=== PATIENT | female | born 2000 | race Two or more races ===

== ENCOUNTER 2024-07-30 21:22 | Emergency (ER) | payer SELFPAY ==
[~2024-07-30] VITALS: Ht 172.7 cm; Wt 57.7 kg
[2024-07-30] MEDS ORDERED: PNV1TABL77 PO (21:40)
[2024-07-30 22:14] LABS: APPEARANCE,URINE CLEAR (CLEAR); BILIRUBIN,URINE NEGATIVE (NEGATIVE); COLOR,URINE LIGHT YELLOW (YELLOW); GLUCOSE, URINE (UA) NEGATIVE (NEGATIVE); KETONES,URINE NEGATIVE (NEGATIVE); LEUKOCYTE ESTERASE ,URINE SMALL (NEGATIVE); NITRATE,URINE NEGATIVE (NEGATIVE); OCCULT BLOOD,URINE NEGATIVE (NEGATIVE); PROTEIN,URINE NEGATIVE (NEGATIVE); SPECIFIC GRAVITIY, URINE 1.008 (1.003-1.030)
[2024-07-30 22:20] LABS: BASOPHILS % (AUTO) 0.1 % (0.0-2.0); EOSINOPHILS % (AUTO) 0.7 % (1.0-6.0); HEMATOCRIT 29.4 % (36-46); HEMOGLOBIN 9.4 g/dL (12.0-16.0); LYMPHOCYTES # (AUTO) 0.8 K/uL (1.0-4.8); LYMPHOCYTES % (AUTO) 7.8 % (22.0-44.0); MEAN CORPUSCULAR HEMOGLOBIN 27.5 pg (26.0-34.0); MEAN CORPUSCULAR HGB CONC 32.2 G/dL (31.0-37.0); MEAN CORPUSCULAR VOLUME 85 fL (80-100); MONOCYTES # (AUTO) 0.4 K/uL (0.1-1.0); MONOCYTES % (AUTO) 3.9 % (2.0-9.0); NEUTROPHILS # (AUTO) 8.9 K/uL (1.8-7.7); PLATELET COUNT (AUTO) 199 K/uL (150-450); RED BLOOD CELL COUNT(AUTO) 3.44 MIL/uL (4.00-5.20); RED CELL DISTRIBUTION WIDTH 14.9 % (11.5-14.5); WHITE BLOOD COUNT (AUTO) 10.1 K/uL (4.5-11.0)
[2024-07-30 22:22] LABS: NEUTROPHILS % (AUTO) 87.5 % (40.0-70.0)
[2024-07-30 22:27] LABS: ANION GAP 10 mmol/L (8-16); CALCIUM, TOTAL 8.5 mg/dL (8.8-10.5); CARBON DIOXIDE 24 mmol/L (22-29); CHLORIDE 105 mmol/L (98-107); CREATININE 0.51 mg/dL (0.60-1.30); GLOMERULAR FILTR. RATE CALC > 60 mL/min (>60); GLUCOSE,RANDOM 100 mg/dL (70-110); POTASSIUM 3.5 mmol/L (3.5-5.1); SODIUM SERUM 139 mmol/L (136-145); UREA NITROGEN, BLOOD 5 mg/dL (7-18)
[2024-07-30 22:27] LABS: BACTERIA,URINE Rare /HPF (None Seen); RBC,URINE 0-2 /HPF (0-2); SQUAMOUS EPITHELIAL CELL,UR Rare /LPF (None Seen)
[2024-07-30 22:53] LABS: HCG,QUANTITATIVE 15265 mIU/mL (0-6); LIPASE 20 U/L (16-77)
[2024-07-30 23:51] LABS: COVID AG,FIA SOURCE NASAL SWAB
[2024-07-31 00:07] LABS: INFLUENZA TYPE A NEGATIVE FOR TYPE A (NEGATIVE); INFLUENZA TYPE B NEGATIVE FOR TYPE B (NEGATIVE)
[2024-07-31 00:08] LABS: SARS-COV2 (COVID) ANTIGEN,FIA Negative (Negative)
[2024-07-31] MEDS: ACETAMINOPHEN 500 MG TABLET PO ONE (01:06)
[2024-07-31] MEDS: DOXYLAMINE SUCCINATE 25 MG TABLET PO ONE (01:06)
[2024-07-31] MEDS: PYRIDOXINE HCL 50 MG TABLET PO ONE (01:06)
[2024-07-31] MEDS: SODIUM CHLORIDE 0.9% 1,000 ML IV ONE (02:41)
[2024-07-31] MEDS ORDERED: CEPH-558 PO ×2 (06:20→07:37)
[2024-07-31 07:55] VITALS: BP 109/61; PULSE 84; RESP 18; TEMP 98.8; O2SAT 98
== END 2024-07-31 08:26 | disposition home or self-care (01) ==
LOC: EMS 21:22
DX: O26.892 Other specified pregnancy related conditions, second trimester (principal); S90.31XA Contusion of right foot, initial encounter; O23.42 Unspecified infection of urinary tract in pregnancy, second trimester; Z90.49 Acquired absence of other specified parts of digestive tract; Z88.0 Allergy status to penicillin; Z3A.16 16 weeks gestation of pregnancy; X58.XXXA Exposure to other specified factors, initial encounter; Y93.89 Activity, other specified; Y92.89 Other specified places as the place of occurrence of the external cause; Y99.8 Other external cause status
CPT/HCPCS: 99285; 87426; 80048; 81001; 83690; 84702; 85025; 87077; 87086; 87186; 87804; 36415; 96360; 29540; 76805; 73610; 73630; J7030